=== PATIENT | female | born 1960 ===

== ENCOUNTER 2018-05-23 19:13 | Emergency (ER) | payer OTHER ==
[2018-05-23] MEDS ORDERED: Sodium Chloride 0.9% 1,000 ML IV STA (20:28)
[2018-05-23 21:13] LABS: BASO % 0.5 % (0.0-2.0); EOS # 0.1 K/uL (0.0-0.7); EOS % 0.8 % (0.0-4.0); HEMOGLOBIN 12.6 g/dL (12.0-16.0); LYMPH % 11.3 % (20.0-40.0); MEAN CELL VOLUME 89.3 fl (81.0-99.0); MEAN CORPUSCULAR HEMOGLOBIN 29.6 pg (27.0-31.0); MEAN CORPUSCULAR HGB CONC 33.2 g/dL (33.0-37.0); MEAN PLATELET VOLUME 7.7 fl (7.2-11.7); MONO # 1.1 K/uL (0.0-0.8); MONO % 12.8 % (0.0-10.0); NEUT # 6.7 K/uL (1.8-7.0); NEUT % 74.6 % (50.0-75.0); NRBC % 0.1 % (0.0-0.0); RBC 4.25 Mil/uL (3.80-5.20); RED CELL DISTRIBUTION WIDTH 13.7 % (11.5-14.5)
--- NOTE | 2018-05-23 21:16 | ED PDOC ---
HPI:Nausea, Vomiting, Diarrhea Time Seen by Provider: 05/23/18 20:15 Chief Complaint (Nursing): Abdominal Pain Chief Complaint (Provider): Abdominal Pain History Per: Patient History/Exam Limitations: no limitations Onset/Duration Of Symptoms: Days (x3), Worse Since (last night) Current Symptoms Are (Timing): Still Present Additional Complaint(s): 57 year old female arrives to ED for an evaluation of nonbloody vomiting and diarrhea since last night. Patient reports experiencing cough with minimal sputum production, fever (tmax: 101 degrees), and muscle aches at the base of her neck 3 days prior. She was prescribed Zpak, cough medication, and Mobic from her PCP with additional use of Advil for alleviation. Patient is a daycare employee. She denies runny nose, sore throat, or recent travel. PCP: Dr. Shaik Burrows Past Medical History Reviewed: Historical Data, Nursing Documentation, Vital Signs Vital Signs: Last Vital Signs Temp 98.3 F 05/23/18 19:27 Pulse 83 05/23/18 19:27 Resp 16 05/23/18 19:27 BP 119/61 05/23/18 19:27 Pulse Ox 100 05/23/18 19:27 - Medical History PMH: No Chronic Diseases - Family History Family History: States: CAD - Social History Current smoker - smoking cessation education provided: No Alcohol: None Drugs: Denies - Immunization History Hx Tetanus Toxoid Vaccination: No Hx Influenza Vaccination: No Hx Pneumococcal Vaccination: No - Home Medications Home Medications: Ambulatory Orders Medication Instructions Recorded Famotidine [Pepcid] 1 tab PO DAILY #14 tab 09/28/14 Naproxen [Naprosyn] 1 tab PO BID PRN #30 tab 05/23/18 Ondansetron ODT [Zofran ODT] 1 odt PO Q6 PRN #20 odt 05/23/18 Oseltamivir Cap [Tamiflu] 75 mg PO BID #10 cap 05/23/18 levoFLOXacin [Levaquin] 750 mg PO DAILY #4 tab 05/23/18 - Allergies Allergies/Adverse Reactions: Allergies Allergy/AdvReac Type Severity Reaction Status Date / Time No Known Allergies Allergy Verified 05/23/18 19:25 Review of Systems ROS Statement: Except As Marked, All Systems Reviewed And Found Negative Constitutional: Positive for: Fever ENT: Negative for: Nose Discharge, Throat Pain Respiratory: Positive for: Cough, Sputum (minimal production) Gastrointestinal: Positive for: Vomiting (NB), Diarrhea (NB) Musculoskeletal: Positive for: Neck Pain (base) Physical Exam - Reviewed Nursing Documentation Reviewed: Yes Vital Signs Reviewed: Yes - Physical Exam Appears: Positive for: No Acute Distress Head Exam: Positive for: ATRAUMATIC, NORMOCEPHALIC Skin: Positive for: Warm, Dry ENT: Positive for: Pharyngeal Erythema. Negative for: Tonsillar Exudate, Tonsillar Swelling (or erythema) Neck: Positive for: Painless ROM, Supple Cardiovascular/Chest: Positive for: Regular Rate, Rhythm. Negative for: Murmur Respiratory: Positive for: Normal Breath Sounds. Negative for: Wheezing Gastrointestinal/Abdominal: Positive for: Soft. Negative for: Tenderness Back: Positive for: Normal Inspection. Negative for: Decreased ROM Extremity: Positive for: Normal ROM. Negative for: Deformity Lymphatic: Negative for: Adenopathy Neurologic/Psych: Positive for: Mood/Affect (tired) - Laboratory Results Result Diagrams: 05/23/18 20:05 05/23/18 20:05 - ECG O2 Sat by Pulse Oximetry: 100 (RA) Pulse Ox Interpretation: Normal Medical Decision Making Medical Decision Making: Initial Impression: Influenza-like illness; gastroenteritis Initial Plan: * Labs * CXR * IV fluids * Tamiflu 75mg PO * Zofran 4mg IVP * Blood culture CXR with early RUL infiltrate Labs with no emergently significant abnormalities DW pt findings and plan of care. Levaquin initiated in ER and urgent followup 24-48 hours Pt now reporting for last 2 weeks she has been having knee swelling, R>L. Seen by PMD who advised xrays. On evaluation, pt has minimal lateral knee edema, FROM, no deformity, no laxity, no bony tenderness. No indication for stat xrays at this time. Advised continue NSAIDs and followup. Scribe Attestation: Documented by Sarah Conte, acting as a scribe for Flaca Porter MD. Provider Scribe Attestation: All medical record entries made by the Scribe were at my direction and personally dictated by me. I have reviewed the chart and agree that the record accurately reflects my personal performance of the history, physical exam, m edical decision making, and the department course for this patient. I have also personally directed, reviewed, and agree with the discharge instructions and disposition. Disposition - Clinical Impression Clinical Impression: Pneumonia, Arthritis of knee Counseled Patient/Family Regarding: Studies Performed, Diagnosis, Need For Followup, Rx Given - Disposition Referrals: Mikaela Brush [Family Provider] - 05/24/18 [facility] [Outside] Disposition: Routine/Home Disposition Time: 22:15 Condition: STABLE Additional Instructions: YAMILETH MUCHOS LIQUIDOS Y DESCANSE VISITA [facility] DO[facility] EN 24-49 HORAS A CHEQAR DE NUEVO REGRESA SI NO PUEDE BEBER O RACHID ADRIANO MEDICAMENTOS, SI TIENES PROBLEMAS CON RESPIRACIONES, SI TIENE MUCHO DOLOR, O OTRAS MALAS SINTOMAS Prescriptions: levoFLOXacin [Levaquin] 750 mg PO DAILY #4 tab Naproxen [Naprosyn] 1 tab PO BID PRN #30 tab PRN Reason: KNEE PAIN Ondansetron ODT [Zofran ODT] 1 odt PO Q6 PRN #20 odt PRN Reason: Nausea/Vomiting Oseltamivir Cap [Tamiflu] 75 mg PO BID #10 cap Instructions: Pneumonia, Adult (DC), Knee Pain (DC) Forms: [facility] ED School/Work Excuse Print Language: LATVIAN
[2018-05-23] MEDS ORDERED: levoFLOXacin 750 mg in D5W 750 MG/150 ML BAG IVPB STA (21:17)
[2018-05-23 21:22] LABS: ALB/GLOB RATIO 1.2 (1.0-2.1); ALBUMIN 4.1 g/dL (3.5-5.0); ALT/SGPT 50 U/L (9-52); AST/SGOT 41 U/L (14-36); BLOOD UREA NITROGEN 25 mg/dl (7-17); CALCIUM 9.4 mg/dL (8.4-10.2); GFR NON-AFRICAN AMERICAN > 60; LIPASE 95 U/L (23-300)
[2018-05-23] MEDS ORDERED: levoFLOXacin 750 mg in D5W 750 MG/150 ML BAG IVPB ONE (22:14)
[2018-05-24 08:03] VITALS: BP 112/60; PULSE 88; RESP 22; TEMP 97.7; O2SAT 99
--- NOTE | 2018-05-24 08:50 | RAD ---
Date of service: 05/23/2018 HISTORY: Fever and cough COMPARISON: No prior. TECHNIQUE: Chest PA and lateral FINDINGS: LINES AND TUBES: None. LUNG AND PLEURA: The lungs are well inflated. There is patchy airspace disease in the right upper lobe. No pleural effusion or pneumothorax. HEART AND MEDIASTINUM: The heart is not enlarged. No aortic atherosclerotic calcification present. The hilar and mediastinal contours are within normal limits. SKELETAL STRUCTURES: The bony structures are within normal limits for the patient's age. VISUALIZED UPPER ABDOMEN: Normal. OTHER FINDINGS: None. IMPRESSION: Patchy airspace disease in the right upper lobe concerning for pneumonia. Follow-up after medical management is recommended to ensure complete resolution.
== END 2018-05-23 23:50 | disposition home or self-care (01) ==
LOC: H.ER 19:13
DX: J18.9 Pneumonia, unspecified organism (principal); R05 Cough
CPT/HCPCS: 71046; 80053; 83605; 83690; 85025; 87040; 96361; 96374; 96375; 99284; J2405; J7030